=== PATIENT | female | born 1945 | race Caucasian/White ===

== ENCOUNTER 2017-07-25 21:25 | Emergency (ER) | payer MEDICARE, OTHER ==
[2017-07-25 22:41] LABS: Hematocrit 32.3 % (37.0-47.0); Mean Cell Volume 91.5 fl (78-100); Mean Corpuscular Hemoglobin 31.2 pg (27-31); Mean Corpuscular Hgb Conc 34.1 g/dl (32-36); Mean Platelet Volume 9.1 fl (6.0-9.5); Neutrophil # 4.5 K/mm3 (1.3-6.0); Neutrophil % 63.3 % (42-75.0); Platelet Count 211 K/mm3 (150-450); Red Blood Count 3.53 M/mm3 (4.2-5.4); Red Cell Distribution Width 12.5 % (11.5-14.0); White Blood Count 7.2 K/mm3 (4.0-10.5)
--- NOTE | 2017-07-25 22:46 | ERNOTE ---
GI Bleeding/Rectal Pain ER Presenting Symptoms: rectal bleeding Time Seen by Provider: 07/25/17 22:43 Source: patient, RN notes reviewed Exam Limitations: no limitations Immunizations: IMMUNIZATION HX Immunizations Up to Date No History of Influenza Vaccine No Hx Pneumococcal Vaccination No Allergies/Adverse Reactions: Allergies ibuprofen Adverse Reaction (Verified 02/01/16 21:49) Home Medications: HOME MEDICATIONS Atenolol [Tenormin] 100 mg PO DAILY 06/06/14 [Last Taken 02/01/16] Gemfibrozil [Lopid] 600 mg PO BID 06/06/14 [Last Taken 02/01/16] Levothyroxine Sodium [Synthroid] 137 mcg PO DAILY 06/06/14 [Last Taken 02/01/16] Lovastatin 40 mg PO HS 06/06/14 [Last Taken 01/31/16] Multivit-Min/FA/Lycopene/Lut [Centrum Silver Tablet] 1 each PO DAILY 06/06/14 [ Last Taken 02/01/16] Acetaminophen [Tylenol] 650 mg PO QID PRN #0 tablet 06/09/14 [Last Taken Unknown ] Hydrocortisone/Lidocaine/Aloe [Lidocaine-Hc 2.8-0.55% Gel] 100 gm RC BID #1 gel.w.appl 07/25/17 [Last Taken Unknown] Narrative: Patient complaining of rectal bleeding off and on tonight, is worried because she is supposed to go on a trip tomorrow. She doesn't want to be admitted. She has had problems off and on for a few years, has had an extensive work up done, states she is never going to be scoped again. Patient also has a history of varicose veins in her legs. Timing: constant, resolved prior to arrival Quality/Severity: Present: moderate Nausea/Vomiting: Present: none Abdominal Pain: Present: none Rectal Bleeding: Present: without stool Associated Symptoms: Reports: maroon stools Prior Treament: Reports: similar symptoms before Review of Systems - Review of Systems Constitutional: Absent: recent illness, fever, chills EYE: Present: no symptoms reported ENT: Absent: ear pain, sore throat Respiratory: Absent: shortness of breath, cough Cardiology: Absent: chest pain, palpitations Gastrointestinal/Abdominal: Present: other - bright red stools per rectum. Absent: nausea, vomiting, diarrhea, constipation Genitourinary: Present: no symptoms reported Musculoskeletal: Present: no symptoms reported Skin: Present: no symptoms reported Neurological: Present: no symptoms reported Endocrine: Present: no symptoms reported Hematologic/Lymphatic: Present: no symptoms reported Psych: Present: no symptoms reported - Patient's Past Medical History Patient History - Medical: Alcohol Abuse, UTI'S, Other Patient History - Cardiac/Respiratory: Hypertension, Hyperlipidemia Patient History - Cancer: No Hx of Cancer Patient History - Surgical Procedures: Other Patient History - Other: None - Family History Mother Family History - Medical: , No pertinent hx Family History - Cardiac/Respiratory: Hypertension Brother Family History - Medical: , Diabetes Type 1 Sister Family History - Medical: Diabetes Type 2 Father Family History - Medical: , No pertinent hx - Social History Living Situations: home Abuse History: No History of abuse Psych History: No pertinent hx Smoking Status: Never smoker Have you smoked in the past 12 months: No Do you dip or chew tobacco: No Alcohol Use: occasionally Drug Use: none - Immunizations Immunizations Up to Date: No Hx Pneumococcal Vaccination: No History of Influenza Vaccine: No Physical Exam - Physical Exam General Appearance: Present: wd/wn, alert, mild distress, thin Head Exam: Present: normal inspection, no evidence of injury Eye Exam: Normal inspection: bilateral, PERRL: bilateral, EOMI: bilateral Ears, Nose, Throat: Present: normal ENT inspection, normal pharynx Neck: Present: normal inspection, nontender Respiratory: Present: no respiratory distress, normal breath sounds, no accessory muscle use, chest nontender, lungs clear Cardiovascular/Chest: Present: regular rate, rhythm, no murmur Gastrointestinal/Abdominal: Present: normal bowel sounds, nontender, nondistended, soft Rectal Exam: Present: nontender, normal rectal tone, hemorrhoids - external that appears to have ruptured and stopped bleeding, mildly filled at this time Back Exam: Present: normal inspection, normal range of motion Extremity Exam: Present: normal inspection, non-tender, normal range of motion, no edema Neurological Exam: Present: alert, oriented, normal mood/affect, no motor/ sensory deficits Skin Exam: Present: normal color, warm/dry ED Progress - Results and Orders Patient's Lab Results:: I have reviewed the patient's lab results. Results and Orders: Laboratory Tests 07/25/17 07/25/17 22:38 22:38 WBC 7.2 RBC 3.53 L Hgb 11.0 L Hct 32.3 L MCV 91.5 MCH 31.2 H MCHC 34.1 RDW 12.5 Plt Count 211 MPV 9.1 Immature Gran % (Auto) 0.30 Immature Gran # (Auto) 0.02 Neutrophils % 63.3 Lymphocytes % 27.1 Monocytes % 7.4 Eosinophils % 1.1 Basophils % 0.8 Nucleated RBC % 0.0 Neutrophils # 4.5 Lymphocytes # 1.9 Monocytes # 0.5 Eosinophils # 0.1 Absolute Basophils 0.1 Sodium 136 Plasma Sodium 136 Potassium 3.6 D Chloride 99 Carbon Dioxide 24.1 Anion Gap 16.5 H BUN 11 Creatinine 0.83 Est GFR (Non-Af Amer) 72 BUN/Creatinine Ratio 13.3 Random Glucose 111 H Calcium 9.2 Calcium Adj for Albumin 8.7 Total Bilirubin 0.3 AST 21 ALT 22 Alkaline Phosphatase 74 Total Protein 7.6 Albumin 4.2 - Vital Signs Patient's Vital Signs:: I have reviewed the patient's vital signs. Vital Signs: Vital Signs 07/25/17 07/25/17 21:31 21:37 Temperature 36.7 C 36.7 C Pulse Rate 66 66 Respiratory 18 18 Rate Blood Pressure 189/92 189/92 O2 Sat by Pulse 98 98 Oximetry - Progress/Reassessment Chief Complaint: Rectal Bleeding Progress:: Improved Departure Clinical Impression: Hemorrhoids, external without complications - Departure Disposition: Home self-care Condition: Good Instructions: Hemorrhoids, [id number] Referrals: Serena Escalona MD [Primary Care Provider] - (5-7 days, sooner if you continue to bleed) Prescriptions: Hydrocortisone/Lidocaine/Aloe [Lidocaine-Hc 2.8-0.55% Gel] 100 gm RC BID #1 gel.w.appl
[2017-07-25 22:52] LABS: Albumin * 4.2 gm/dl (3.4-5.0); Anion Gap 16.5 mmol/L (6.8-13.8); BUN/Creatinine Ratio 13.3 (9.0-21.6); Bilirubin, Total 0.3 mg/dL (0.0-1.1); Ca. Corrected For Albumin 8.7 mg/dL (8.4-10.2); Calcium * 9.2 mg/dL (7.9-10.9); Carbon Dioxide 24.1 mmol/L (24-32.6); Potassium 3.6 mmol/L (3.4-4.6); Total Protein 7.6 gm/dL (6.2-8.2)
[2017-07-26 00:03] VITALS: BP 180/79
== END 2017-07-25 23:38 | disposition home or self-care (01) ==
LOC: ER 21:25
DX: K64.4 Residual hemorrhoidal skin tags (principal); I10 Essential (primary) hypertension; E78.5 Hyperlipidemia, unspecified